=== PATIENT | female | born 1990 | race Caucasian/White ===

== ENCOUNTER 2019-01-07 19:42 | Emergency (ER) | payer OTHER, MEDICAID, SELFPAY ==
[2019-01-07 19:49] VITALS: BP 121/76; PULSE 89; RESP 18; TEMP 37.3; O2SAT 99
[2019-01-07] MEDS: Amoxicillin 500 MG CAP PO (20:38)
--- NOTE | 2019-01-07 20:39 | ED.GENADUL_ITS ---
Discharge Plan Disposition Patient Disposition: HOME Condition: Good Discharge Details Chief Complaint: Sorethroat Clinical Impression: Strep throat Primary Care Provider: Noemí Vieira ED Provider: Crow [place] Home Meds and New Rx's Prescriptions: New amoxicillin 500 mg capsule 500 mg PO BID Qty: 20 RF: 0 No Action norgestimate-ethinyl estradiol [Ortho-Cyclen (28)] 0.25-35 mg-mcg tablet 1 tab PO DAILY Qty: 84 RF: 4 PNV cmb#95-ferrous fumarate-FA [] 28 mg iron- 800 mcg tablet 1 tab PO DAILY PRNRF: 0 acyclovir 400 mg tablet 400 mg PO BID RF: 0 Discharge Instructions Instructions: Strep Throat (ED) Additional Instructions: You have strep throat. Please take the antibiotic as directed. Take Tylenol and Motrin as needed for pain. If you notice any worsening of your symptoms, or any new symptoms such as vomiting, diarrhea, fever, chills, shortness of breath, chest pain, numbness, weakness, or fainting , please return immediately to the emergency department for reevaluation. Please follow up with your primary care provider as soon as possible for reassessment and reevaluation. As always, it was a pleasure participating in your medical care today. Referrals: Noemí Vieira, AIRPORT MAINTENANCE LABORER [Primary Care Provider] - Discharge Data Discharge Date/Time-TO BE ENTERED AT DEPARTURE: 01/07/19 20:47 Medical Decision Making This is a 28-year-old female with no significant past medical history who presents today for evaluation of sore throat for the last day. Physical exam demonstrates an erythematous sore throat, mildly enlarged tonsils, present tonsillar exudate. Strep test is positive. The patient will be started on amoxicillin. We discussed red flags for which to return the patient understands. I have extensively reviewed the treatment plan and discharge instructions with the patient. I have addressed all patient concerns at this time. The patient was made aware of what symptoms to monitor for that would warrant a return to the emergency department. Discussed the plan with the patient, they demonstrate verbal understanding and agreement with our assessment and plan at this time. HPI General Date/Time Provider Initiated Documentation: 01/07/19 20:16 . HPI Narrative: This is a 28-year-old female with no significant past medical history who presents today for evaluation of sore throat for the last day. She states that she has had strep throat before and it feels similar to this. She denies any cough, fever chills or lethargy. She denies any headache or neck pain. She has no other complaints or modifying factors at this time. She denies any other sick contacts currently. Related Data Home Medications Medication Instructions Recorded Confirmed acyclovir 400 mg tablet 400 mg PO BID tab-cap 09/19/18 01/07/19 norgestimate 0.25 mg-ethinyl 1 tab PO DAILY #84 tab 09/19/18 01/07/19 estradiol 35 mcg tablet vit no.95-ferrous 1 tab PO DAILY PRN tab 09/19/18 09/19/18 fumarate 28 mg-folic acid 800 mcg tablet amoxicillin 500 mg PO BID #20 cap 01/07/19 Previous Rx's Medication Instructions Recorded norgestimate 0.25 mg-ethinyl 1 tab PO DAILY #84 tab 09/19/18 estradiol 35 mcg tablet amoxicillin 500 mg PO BID #20 cap 01/07/19 Allergies Allergy/AdvReac Type Severity Reaction Status Date / Time Sulfa (Sulfonamide Allergy Intermediate Skin Rash Unverified 01/07/19 19:53 Antibiotics) sulfamethoxazole Allergy Unknown Skin Rash Unverified 01/07/19 19:53 [From Bactrim] trimethoprim [From Bactrim] Allergy Unknown Skin Rash Unverified 01/07/19 19:53 General Stated Complaint: Sorethroat VIRGILIO: 4 Review of Systems Review of Systems All systems reviewed & are unremarkable except as noted in HPI and below PFSH Medical History 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 Son No problems noted. Maternal Grandfather Type 2 diabetes mellitus Essential hypertension Hyperlipidemia Heart disease Stroke Kidney failure Maternal Grandmother Depression Type 2 diabetes mellitus Essential hypertension Hyperlipidemia Stroke Paternal Grandfather Asthma Heart disease Essential hypertension Hyperlipidemia Emphysema lung Paternal Grandmother Essential hypertension Hyperlipidemia Bladder cancer Uterine cancer Social History Smoking/Tobacco Use Status: Never Second Hand Exposure: Yes Alcohol Intake: current Alcohol Intake frequency: a few times a week Alcohol type: wine and hard liquor Drug use: Never Substance use type: does not use Caregiver/Support person: No Household members: spouse and children Housing: house Pets and animals: Yes Pets and animals: dog(s) and farm animals Sexually active: Yes Do you think of yourself as: straight/heterosexual Current gender identity: female What is your relationship status?: How often do you talk on the phone with friends or family?: twice per week How often do you get together with friends or relatives?: twice per week How often do you attend anabaptism or latter-day services?: 4 or more times per year Do you belong to any clubs or organized social groups?: yes Panel score (0-1 are the most socially isolated patients): 4 What type of physical activity do you participate in: other Duration: 45-60 minutes/day Frequency: daily Do you feel safe at home: Yes Do you feel safe in your relationship?: Yes History History 2 Para 2 Hx # Term Pregnancies Multiple births Hx # Pregnancies Ectopic pregnancies AB induced Hx Number of Living Children 2 AB spontaneous Exam Narrative Exam Narrative: 1.Const: Well-nourished, Well-developed, appearing stated age 2.Eyes: PERRL, no conjunctival injection, and symmetrical lids. 3.ENT: Atraumatic external nose and ears. Moist MM. Neck: Symmetric, trachea midline, No thyromegaly. Notable erythema the posterior oropharynx, slightly enlarged tonsils, no signs of airway compromise. Mild tonsillar exudate is present. Patient demonstrates good movement of cervical neck. There is no nuchal rigidity, no nuchal tenderness. Patient is able to flex the neck without any difficulty or significant pain. Negative Kernig's and Brudzinski sign. Mild cervical lymphadenopathy is present bilaterally. 4.CVS: +S1/S2, No murmurs or gallops. Peripheral pulses 2+ and equal in all extremities. Brisk capillary refill in all extremities. 5.RESP: Unlabored respiratory effort. Clear to auscultation bilaterally. No wheezes rales or rhonchi 6.GI: Soft, Nontender/Nondistended, No hepatosplenomegaly. No guarding or rebound. 7.MSK: Normocephalic/Atraumatic, Extremities w/o deformity or ttp No cyanosis or clubbing, Normal movement of all extremities 8.Skin: Warm, Dry. No rashes or lesions. 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 Sensation grossly intact, no focal neurologic deficits. 10.Psych: (AAO) x3. Appropriate mood and affect Course Vital Signs Temperature 37.3 C 01/07/19 19:49 Pulse 89 01/07/19 19:49 Respiratory Rate 18 01/07/19 19:49 Blood Pressure 121/76 01/07/19 19:49 Pulse Oximetry 99 01/07/19 19:49 Temperature 37.3 C 01/07/19 19:49 Temperature Source Temporal Artery Scan 01/07/19 19:49 Pulse 89 01/07/19 19:49 Respiratory Rate 18 01/07/19 19:49 Respiratory Effort Non-Labored 01/07/19 19:49 Blood Pressure 121/76 01/07/19 19:49 Blood Pressure Position Sitting 01/07/19 19:49 Pulse Oximetry 99 01/07/19 19:49 Oxygen Delivery Method Room Air 01/07/19 19:49 Oxygen Flow Rate 0 01/07/19 19:49 Pain Level 8 01/07/19 19:49 Lab/Test Results Lab/Test Results: POC Strep Test-WINNIE(Rapid) Start: 01/07/19 20:06 Freq: .Rapid Strep Test Status: Active Protocol: Document 01/07/19 20:07 SN (Rec: 01/07/19 20:07 [id number]) Strep test-WINNIE(Rapid)-POC POC-Strep test-WINNIE (Rapid) Positive POC-Strep test-WINNIE (Rapid) Positive
== END 2019-01-07 20:47 | disposition home or self-care (01) ==
PROVIDERS: Emergency Provider Student in an Organized Health Care Education/Training Program; PCP Nurse Practitioner Family
DX: J02.0 Streptococcal pharyngitis (principal)
CPT/HCPCS: 87880; 99283

== ENCOUNTER 2019-03-08 17:34 | Outpatient (REF) | payer OTHER, MEDICAID, SELFPAY ==
--- NOTE | 2019-03-08 15:30 | PAPFT_PTH ---
PATIENT: Terri Encarnacion LOC: [facility] U#:[id number] AGE/SX: 28/F ROOM: RE03/08/[address]: LESLIE Cerda : 1990 BED: DIS: 03/08/2019 SPEC #: [id number] RECD: 03/09/19 12:45 STATUS: SHAZIA REQ #: [id number] JEANETTE: 03/08/19 15:[address]: Noemí Vieira DEPT: [facility] Cytology RECD BY: Gala Morales Tissues: 1 - CX/ENDOCX FOR PAP SMEARS Procedures: PAP THIN PREP/UVM Screening Comments: [id number]
== END 2019-03-08 17:54 ==
LOC: LBN 17:34
PROVIDERS: PCP Nurse Practitioner Family; Visit Provider Nurse Practitioner Family
DX: Z12.4 Encounter for screening for malignant neoplasm of cervix (principal)
CPT/HCPCS: 88142

== ENCOUNTER 2019-03-23 19:48 | Emergency (ER) | payer OTHER, MEDICAID, SELFPAY ==
[2019-03-23 19:58] VITALS: BP 132/86; PULSE 82; RESP 16; TEMP 36.7; O2SAT 100
--- NOTE | 2019-03-23 20:11 | W.ED.GENAD ---
Discharge Plan Disposition Patient Disposition: HOME Condition: Good Discharge Details Chief Complaint: Laceration Clinical Impression: Laceration Primary Care Provider: Noemí Vieira ED Provider: Crow Jay Home Meds and New Rx's Prescriptions: No Action norgestimate-ethinyl estradiol 0.25-35 mg-mcg tablet 1 tab PO DAILY Qty: 84 RF: 4 acyclovir 400 mg tablet 400 mg PO BID Qty: 180 RF: 4 Discharge Instructions Instructions: Laceration (ED) Additional Instructions: Or lacerations have been covered with Dermabond. Please make sure that they are covered at all times for the next 10 days. The Dermabond will eventually come off on its own. If you notice any numbness tingling or weakness please return immediately for reassessment. If you notice any worsening of your symptoms, or any new symptoms such as vomiting, diarrhea, fever, chills, shortness of breath, chest pain, numbness, weakness, or fainting , please return immediately to the emergency department for reevaluation. Please follow up with your primary care provider as soon as possible for reassessment and reevaluation. As always, it was a pleasure participating in your medical care today. 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 She was holding a wine bottle when it hit the table and broke causing the small lacerations. 2 in particular over the dorsal aspect of the middle finger just proximal to the nail base, and one just proximal to the nail or the thumb with the only ones that required intervention. All the others were notably superficial. These 2 were superficial with no involvement of the deep osseous or tendon structures. The areas were cleaned and irrigated with copious amounts of normal saline chlorhexidine scrub. The areas were then Dermabond it with excellent wound edge reapproximation. No continued bleeding. Patient tolerated procedure well. Discussed wound care instructions. I have extensively reviewed the treatment plan and discharge instructions with the patient and their family. I have addressed all patient concerns at this time. The patient and family was made aware of what symptoms to monitor for that would warrant a return to the emergency department. Discussed the plan with the patient and family, they demonstrate verbal understanding and agreement with our assessment and plan at this time. HPI General Date/Time Provider Initiated Documentation: 03/23/19 19:55. HPI Narrative: This is a pleasant 28-year-old female with no significant past medical history who presents today for evaluation of laceration to her right dominant hand. Tetanus is up-to-date. The patient states that she was holding a wine bottle when she accidentally hit it on the counter causing it to break. She developed multiple small lacerations over her right hand, most of which were controlled well with a Band-Aid, however she did develop to slightly larger superficial lacerations, one over the dorsal aspect of the middle finger and the other with her the dorsal aspect of the thumb. The patient denies any numbness tingling or weakness. She denies any significant pain. Bleeding is well controlled. She has no other complaints or modifying factors at this time. Related Data Home Medications Medication Instructions Recorded Confirmed norgestimate 0.25 mg-ethinyl 1 tab PO DAILY #84 tab 03/09/19 03/23/19 estradiol 35 mcg tablet acyclovir 400 mg tablet 400 mg PO BID #180 tab 03/16/19 03/23/19 Previous Rx's Medication Instructions Recorded norgestimate 0.25 mg-ethinyl 1 tab PO DAILY #84 tab 03/09/19 estradiol 35 mcg tablet acyclovir 400 mg tablet 400 mg PO BID #180 tab 03/16/19 Allergies Allergy/AdvReac Type Severity Reaction Status Date / Time Sulfa (Sulfonamide Allergy Intermediate Skin Rash Unverified 03/23/19 20:01 Antibiotics) sulfamethoxazole Allergy Unknown Skin Rash Unverified 03/23/19 20:01 [From Bactrim] trimethoprim [From Bactrim] Allergy Unknown Skin Rash Unverified 03/23/19 20:01 General Stated Complaint: Laceration VIRGILIO: 4 Review of Systems Review of Systems All systems reviewed & are unremarkable except as noted in HPI and below PFSH Social History Smoking/Tobacco Use Status: Never Second Hand Exposure: Yes Alcohol Intake: current Alcohol Intake frequency: a few times a week Alcohol type: wine and hard liquor Drug use: Never Substance use type: does not use Caregiver/Support person: No Household members: spouse and children Housing: house Pets and animals: Yes Pets and animals: dog(s) and farm animals Sexually active: Yes Do you think of yourself as: straight/heterosexual Current gender identity: female What is your relationship status?: How often do you talk on the phone with friends or family?: three or more times per week How often do you get together with friends or relatives?: twice per week How often do you attend buddhism or hoahaoism services?: 1-3 times per year Do you belong to any clubs or organized social groups?: yes Panel score (0-1 are the most socially isolated patients): 3 What type of physical activity do you participate in: other Details: Farming and Kid chasing. Duration: 45-60 minutes/day Frequency: daily Special rona needs: No Seatbelt use: sometimes Helmet use: Yes Helmet use: sometimes Drive intox or ride w/intox school bus driver/mechanic: No Do you feel safe at home: Yes Do you feel safe in your relationship?: Yes Female Reproductive History Menstrual control method: pills History History 1 Para 1 Hx # Term Pregnancies Multiple births Hx # Pregnancies Ectopic pregnancies AB induced Hx Number of Living Children 1 AB spontaneous Exam Narrative Exam Narrative: 1.Const: Well-nourished, Well-developed, appearing stated age 2.Eyes: PERRL, no conjunctival injection, and symmetrical lids. 3.ENT: Atraumatic external nose and ears. Moist MM. Neck: Symmetric, trachea midline, No thyromegaly. 4.CVS: +S1/S2, No murmurs or gallops. Peripheral pulses 2+ and equal in all extremities. Brisk capillary refill in all extremities. 5.RESP: Unlabored respiratory effort. Clear to auscultation bilaterally. No wheezes rales or rhonchi 6.GI: Soft, Nontender/Nondistended, No hepatosplenomegaly. No guarding or rebound. 7.MSK: Normocephalic/Atraumatic, Extremities w/o deformity or ttp No cyanosis or clubbing, Normal movement of all extremities. Right hand: Symmetrically palpable radial and ulnar pulses. Capillary refill less than 2 seconds to all digits. Intact sensation to light touch of the radial, median and ulnar nerves demonstrated by testing in the dorsal web space of the thumb, the distal palmar aspect of the index finger, and the lateral surface of the fifth finger. 2 point discrimination intact to 5mm (up to 6mm can be normal in digits 3-5) of discrimination in the affected digit. Intact motor function of the radial, median and ulnar nerves demonstrated by strength of extension of the isolated distal joint of the index finger, hand emergency operator, and spreading of the 2nd through 5th digits. Intact recurrent median nerve as demonstrated by ability to move thumb fully through opposition, abduction and flexion. No snuffbox tenderness. 8.Skin: Warm, Dry. Multiple superficial abrasions over the patient's right hand, 2 small lacerations one over the dorsal aspect of the middle finger with a skin flap just proximal to the nailbed. No evidence of nailbed involvement. The second is over the dorsal aspect of the right thumb. Roughly 1 cm in length. No active bleeding. Capillary refill is brisk for all fingers. 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 Sensation grossly intact, no focal neurologic deficits. 10.Psych: (AAO) x3. Appropriate mood and affect Course Vital Signs Temperature 36.7 C 03/23/19 19:58 Pulse 82 03/23/19 19:58 Respiratory Rate 16 03/23/19 19:58 Blood Pressure 132/86 03/23/19 19:58 Pulse Oximetry 100 03/23/19 19:58 Temperature 36.7 C 03/23/19 19:58 Temperature Source Skin 03/23/19 19:58 Pulse 82 03/23/19 19:58 Respiratory Rate 16 03/23/19 19:58 Respiratory Effort Non-Labored 03/23/19 20:00 Blood Pressure 132/86 03/23/19 19:58 Pulse Oximetry 100 03/23/19 19:58 Oxygen Delivery Method Room Air 03/23/19 19:58 Oxygen Flow Rate 0 03/23/19 19:58 Pain Level 2 03/23/19 19:58
[2019-03-23 20:23] VITALS: BP 132/86; PULSE 82; RESP 16; TEMP 36.7; O2SAT 100
== END 2019-03-23 20:25 | disposition home or self-care (01) ==
LOC: ER 20:18
PROVIDERS: Emergency Provider Student in an Organized Health Care Education/Training Program; PCP Nurse Practitioner Family
DX: S61.011A Laceration without foreign body of right thumb without damage to nail, initial encounter (principal); S61.212A Laceration without foreign body of right middle finger without damage to nail, initial encounter; W25.XXXA Contact with sharp glass, initial encounter
CPT/HCPCS: 12001

== ENCOUNTER 2020-04-01 10:17 | Outpatient (CLI) | payer OTHER, MEDICAID, SELFPAY ==
[2020-04-04 12:32] LABS: Method Summary See Comments; Patient Race White; SARS-CoV-2 RNA Undetected (Undetected); SARS-CoV-2 Specimen Source Nasopharynx
== END 2020-04-01 10:37 ==
PROVIDERS: PCP Nurse Practitioner Family; Visit Provider Nurse Practitioner Family
DX: Z11.59 Encounter for screening for other viral diseases (principal)
CPT/HCPCS: U0003

== ENCOUNTER 2022-04-22 09:39 | Outpatient (REF) | payer OTHER, MEDICAID, SELFPAY ==
--- NOTE | 2022-04-22 08:15 | PAPFT_PTH ---
PATIENT: Terri Encarnacion LOC: [facility] U#:[id number] AGE/SX: 31/F ROOM: RE04/22/[address]: LESLIE Cerda : 1990 BED: DIS: 04/22/2022 SPEC #: [id number] RECD: 04/22/22 13:18 STATUS: SHAZIA REQ #: [id number] JEANETTE: 04/22/22 08:[address]: Noemí Vieira DEPT: COUNTS INCLUDE 234 BEDS AT THE [facility] Cytology RECD BY: Gala Morales Tissues: 1 - CX/ENDOCX FOR PAP SMEARS Procedures: PAP THIN PREP/UVM Screening HPV DNA PROBE Comments: [id number]
== END 2022-04-22 09:40 | disposition home or self-care (01) ==
LOC: LBN 09:39
PROVIDERS: PCP Nurse Practitioner Family; Visit Provider Nurse Practitioner Family
DX: Z12.4 Encounter for screening for malignant neoplasm of cervix (principal); Z11.51 Encounter for screening for human papillomavirus (HPV)
CPT/HCPCS: 88142; 87624

== ENCOUNTER 2023-05-20 10:20 | Outpatient (CLI) | payer OTHER, MEDICAID, SELFPAY ==
[2023-05-20 12:14] LABS: MCH 29.2 pg (27.0-33.0); MCHC 32.5 % (32.0-36.0); MCV 90 fL (80-95); MPV 11.5 fL (8.0-11.0); Platelet Count 232 10^3/uL (130-400); RBC 4.45 10^6/uL (3.93-5.22); RDW 12.5 % (11.7-14.6); RDW-SD 41.4 fL; WBC 7.52 10^3/uL (4.4-10.8)
[2023-05-20 12:57] LABS: Anion Gap 9.9 mmol/L (3-11); BUN 10 mg/dL (7-18); CO2 28.1 mmol/L (21.0-32.0); CREATININE 0.8 mg/dL (0.55-1.02); Calcium 9.3 mg/dL (8.5-10.1); Calculated LDL 92 mg/dL (<100); Chloride 103 mmol/L (98-107); Cholesterol 167 mg/dL (<200); Estimated GFR 100.33 (mL/min/1.73m2); Glucose 108 mg/dL (74-106); HDL Cholesterol 67 mg/dL (40-60); Sodium 141 mmol/L (136-145); TSH (W/Ref FT4) 0.78 uIU/mL (0.36-3.74); Triglyceride 41 mg/dL (<150)
[2023-05-21 09:52] LABS: Hepatitis C Ab w Rflx HCV PCR Negative (Negative)
== END 2023-05-20 10:21 | disposition home or self-care (01) ==
LOC: LOS 10:21
PROVIDERS: PCP Nurse Practitioner Family; Referring Provider Nurse Practitioner Family; Visit Provider Nurse Practitioner Family
DX: Z00.00 Encounter for general adult medical examination without abnormal findings (principal)
CPT/HCPCS: 36415; 80048; 80061; 85027; 86803; 84443

== ENCOUNTER 2024-07-27 00:14 | Outpatient (CLI) | payer OTHER, SELFPAY ==
--- NOTE | 2024-07-27 08:00 | ETT_ITS ---
APPROVED REPORT Exam: Exercise Treadmill Patient Location: Out-Patient Room/Bed: Stress Nurse: Gaby Bates RN Ordering Provider:NOEMI DE LUNA, Contact Number: [phone] BMI: 21.57 Baseline Rhythm: Sinus Rhythm. Comment: Rare PAC noted. Indications: Chest Pain. Medical History Medical History: Generalized Anxiety Disorder; Major Depressive Disorder; Inflammatory Arthritis; Naseem gale. Cardiac Medications: Acyclovir; Escitalopram; Rizatriptan; Norgestimate. Allergies: Bactrim; Sulfas. Cardiac Risk Factors: Family Hx. Previous Cardiac Procedures: None. Pretest Chest Pain Characteristics: None. Exercise History: Physically active. Physical Disabilities: None. Lung Sounds: Clear bilaterally throughout, anterior and posterior. Heart Sounds: S1 and S2 auscultated. Stress Test Details Test: Exercise stress testing was performed using a Prateek protocol. Rest Stress HR Resting HR Supine: 63 bpm Max Heart Rate (APMHR): 186 bpm Resting HR Standin bpm Target HR (85% APMHR): 158 bpm Max HR Achieved: 171 bpm % of APMHR: 92 Recovery HR: 85 bpm HR response to stress: Normal HR response to stress. BP Resting BP Supine: 140/84 mmHg Resting BP Standin/72 mmHg Max BP: 180/90 mmHg Recovery BP: 128/80 mmHg BP response to stress: Normal blood pressure response to stress. ECG Resting ECG: Sinus Rhythm. Ectopy: Rare PAC noted. Stress ECG: Sinus Tachycardia. ST Change: No significant ST segment changes noted Stage: 4 Arrhythmia: None. Recovery ECG: Sinus Rhythm. Recovery Arrhythmia: None. Comment: Minor nonspecific changes Clinical Reason for Termination: Target HR Achieved. Stress Symptoms: None. Exercise duration: 11 min15 sec Highest Stage Reached: Stage 4: 4.2 mph at 16% grade. Exercise capacity: 13.48 METs Angina Score: None Steele Treadmill Score: 8.0 Rate Pressure Product: [id number] Stress ECG Conclusion 1. Resting electrocardiogram showed minor nondiagnostic ST abnormalities 2. Patient exercised on the Prateek protocol completed workload of 13.48 METS 3. Normal heart rate and blood pressure response to exercise. The patient achieved 92% of maximal pr edicted heart rate for age 4. There was no electrocardiographic evidence of myocardial ischemia. There were no symptoms suggest kali of angina 5. There were no dysrhythmias Steele Treadmill Score is 8.0 which is Low risk. Critical Notification Physician Notified Date: 07/27/2024 Time: 1403 Physician Name: Dr. Blakely Response Time: 1403 Stress Test Summary STAGE Time (mins) Speed (mph) Grade (%) HR BP SpO2 SYMPTOMS METS Supine 63 140/84 100 Standing 66 140/72 100 1 3 1.7 10 105 138/76 99 4.5 2 6 2.5 12 121 150/82 98 7 3 9 3.4 14 148 160/88 96 10 4 12 4.2 16 171 13 1 min recovery 145 180/90 99 3 min recovery 109 158/82 99 6 min recovery 89 124/76 99 9 min recovery 85 128/80 98 Pt. was noted to have minor labile ST abnormalities in Stage 4 of exercise and in recovery in leads I I, III, and aVF. Pt. was completely asymptomatic before, during, and after the stress test and pt.'s VS were stable. Dr. Blakely was notified at 1403 on 07/27/24. Per Dr. Blakely, it was safe to let the pt. l eave. Pt. was conversing pleasantly with nursing staff upon leaving the stress lab. Pt. left ambulato ry in no apparent distress.
== END 2024-07-27 00:34 ==
PROVIDERS: PCP Nurse Practitioner Family; Visit Provider Nurse Practitioner Family
DX: R07.9 Chest pain, unspecified (principal)
CPT/HCPCS: 93017

== ENCOUNTER 2024-10-27 15:04 | Outpatient (REF) | payer OTHER, SELFPAY | END 2024-10-27 15:05 | disposition home or self-care (01) | LOC: LBN 15:04 | PROVIDERS: PCP Nurse Practitioner Family; Visit Provider Family Medicine | DX: J02.9 Acute pharyngitis, unspecified (principal) | CPT/HCPCS: 87070 ==